=== PATIENT | female | born 1990 | race Caucasian/White ===

== ENCOUNTER 2017-01-07 12:34 | Outpatient (CLI) | payer MEDICAID ==
[~2017-01-07] VITALS: Ht 162.6 cm; Wt 69.1 kg
[~2017-01-07 12:34] MED LIST: FOLI0.4T2 PO; ONDA4TAB8 PO; PREN1TAB49 PO
[2017-01-07 13:13] VITALS: Ht 162.6 cm; Wt 69.1 kg
[2017-01-07 13:14] VITALS: BP 106/69; PULSE 82; RESP 19
--- NOTE | 2017-01-07 13:49 | RADRPT ---
PROCEDURE: US OB. CLINICAL INDICATION: Decreased movement TECHNIQUE: Multiple sonographic images of the pelvis were obtained. The images were reviewed on a PACS workstation. COMPARISON: No prior studies are available for comparison. FINDINGS: There is a single live intrauterine . cardiac activity is identified at a rate of 13 5 beats per minute. presentation is cephalic. Placenta is anterior grade II. Biophysical profile score is as follows: Breathing 2 Movements 2 Tone 2 Fluid volume 2 Amniotic fluid index = 10.3 cm Total biophysical profile score = 8/8 IMPRESSION: Biophysical profile score = 8/8 RPTAT: HH .Jaswinder Joe MD, MD Date Time Electronically viewed and signed by .Jaswinder Joe MD, on 01/07/2017 13:48 .W/
--- NOTE | 2017-01-07 16:49 | CONS ---
Date/Time of Note Date/Time of Note DATE: 01/07/17 TIME: 16:42 Consultation Date/Type/Reason Admit Date/Time January 07, 2017 OB triage consult This patient is 26 years old 3 para 3 living 3, with 2 previous spontaneous vaginal delivery. Her estimated date of confinement is January which makes her 38 weeks and 0 days now. She came in complaining of low movement in the past 2 days. On examination she is a well-developed well-nourished patient in no acute distress her general vital signs are normal with blood pressure 106/ 69, pulse rate of 82, respiration 19, and temperature 98.2. Constitutional: No chills, No diaphoresis, No disoriented, No febrile, No improved, No no complaints, No other, No poor po, No requiring IVF, No requiring O2 Eyes: No discharge, No no complaints, No other, No pain, No redness, No visual change ENT: No bleeding, No congestion, No discharge, No dysphagia, No no complaints, No other, No pain, No sore throat Respiratory: No cough, No no complaints, No other, No pain, No pleuritic pain, No shortness of breath, No sputum, No wheezing Cardiovascular: No chest pain, No edema, No lightheadedness, No no complaints, No orthopenea, No other, No palpitations, No paroxysmal nocturnal dyspnea Gastrointestinal: No blood, No constipation, No decreased appetite, No diarrhea , No flatus, No nausea, No no complaints, No other, No pain, No passing stool, No vomiting Genitourinary: No bleeding, No discharge, No dysuria, No flank pain, No hematuria, No no complaints, No other Musculoskeletal: other (Knee-jerk reflex were normal), No back pain, No bone/joint pain, No neck pain, No no complaints, No restricted range of motion, No swelling Skin: No bruising, No erythema, No laceration, No no complaints, No other, No pruritis, No rash, No skin lesions Neurologic: No confusion, No dizziness, No focal-weakness, No headache, No no complaints, No other, No seizure, No syncope Additional Comments . Her NST was reactive with fairly good variability and occasional acceleration no decelerations. Ultrasound examination result is single live intrauterine with heart activity 135 beats per minutes in vertex presentation her biophysical profile was reported 8.8. The amniotic fluid index was reported 10.3 cm. .Disposition: these normal findings were explained to the patient and she was discharged home to be followed in the clinic Social History Smoking Status: Never smoker Exam/Review of Systems Vital Signs Vitals Vital Signs Date Time Temp Pulse Resp B/P Pulse Ox O2 Delivery O2 Flow Rate FiO2 01/07/17 13:14 98.2 82 19 106/69 99 ORESTES REYES MD Jan 07, 2017 16:49
--- NOTE | 2017-01-07 20:21 | TRIAGE ---
OB Triage Datetime Report Generated by CPN: 01/07/2017 20:21 Datetime: 01/07/2017 16:39 Maternal Assessment Level of Consciousness: Fully Conscious Headache: Denies Blurred Vision: No Nausea/Vomiting: Denies RUQ Epigastric Pain: Denies Facial Edema: None Labor Evaluation Frequency: 2-9 Monitor Mode: External Duration (sec)2399: 50-80 Quality: Mild Pattern: Normal: <= 5 Contractions in 10 Minutes Resting Tone Lindsey: Relaxed Contraction Comments: PT REPORTS THAT SHE FEELS ABDOMINAL PRESSURE WITH CONTRACTIONS Heart Rate FHR Baseline Rate: 135 Monitor Mode: External US FHR Baseline Changes: No Baseline Change Variability: Moderate 6-25 bpm Accelerations: 15X15 Decelerations: None Pain Assessment Pain Scale: 0 Pain Presence: None/Denies Pain Type: N/A Datetime: 01/07/2017 16:00 Labor Evaluation Frequency: 2-8 Monitor Mode: External Duration (sec)2399: 60-80 Quality: Mild Pattern: Normal: <= 5 Contractions in 10 Minutes Resting Tone Lindsey: Relaxed Heart Rate FHR Baseline Rate: 135 FHR Baseline Changes: No Baseline Change Variability: Moderate 6-25 bpm Accelerations: 15X15 Decelerations: None Datetime: 01/07/2017 14:55 Stage of : OB Triage Maternal Assessment Level of Consciousness: Fully Conscious DTR's/Clonus: DTRs 1+ Headache: Denies Breath Sounds, Left: Clear and Equal Breath Sounds, Right: Clear and Equal Nausea/Vomiting: Denies RUQ Epigastric Pain: Denies Labor Evaluation Frequency: NONE Monitor Mode: External Resting Tone Lindsey: Relaxed Heart Rate FHR Baseline Rate: 130 Monitor Mode: External US Variability: Moderate 6-25 bpm Accelerations: 15X15 Decelerations: None Category: Category I Pain Assessment Pain Scale: 0 Pain Presence: None/Denies Pain Type: N/A Pain Goal: 3 Vaginal Exam Membrane Status: Intact Datetime: 01/07/2017 14:30 Stage of : OB Triage Maternal Assessment Level of Consciousness: Fully Conscious DTR's/Clonus: DTRs 1+ Headache: Denies Breath Sounds, Left: Clear and Equal Breath Sounds, Right: Clear and Equal Nausea/Vomiting: Denies RUQ Epigastric Pain: Denies Labor Evaluation Frequency: NONE Monitor Mode: External Resting Tone Lindsey: Relaxed Heart Rate FHR Baseline Rate: 130 Monitor Mode: External US Variability: Moderate 6-25 bpm Accelerations: 15X15 Decelerations: None Category: Category I Pain Assessment Pain Scale: 0 Pain Presence: None/Denies Pain Type: N/A Pain Goal: 3 Vaginal Exam Membrane Status: Intact Datetime: 01/07/2017 13:50 Comments: NST REACTIVE BPP 8/8 AF I 10.3 VTX Datetime: 01/07/2017 13:30 Maternal Assessment Level of Consciousness: Fully Conscious DTR's/Clonus: DTRs 1+ Headache: Denies Blurred Vision: No Respiratory Effort: Unlabored Breath Sounds, Left: Clear and Equal Breath Sounds, Right: Clear and Equal Nausea/Vomiting: Denies RUQ Epigastric Pain: Denies Facial Edema: None Labor Evaluation Frequency: NONE Monitor Mode: External Resting Tone Lindsey: Relaxed Heart Rate FHR Baseline Rate: 130 Monitor Mode: External US Variability: Moderate 6-25 bpm Accelerations: 10X10 Decelerations: None Category: Category I Pain Assessment Pain Scale: 0 Pain Presence: None/Denies Pain Type: N/A Pain Goal: 3 Vaginal Exam Membrane Status: Intact Datetime: 01/07/2017 12:30 Arrived By: Ambulatory Arrived From: Office Chief Complaint: PT CAME IN FROM CLINIC C/O DFM Movement: Present Contractions: Denies/Absent Rupture of Membranes: Denies Vaginal Discharge: Denies Recent Sexual Intercouse: Denies Abdominal Trauma: Not Applicable Additional Patient Complaints: NONE Provider Notified: JAYESH Initial Plan: ONURT AND BAYLEE
== END 2017-01-07 17:04 | disposition home or self-care (01) ==
LOC: OBT 12:34 → L-D 12:37 → OBT 17:04
PROVIDERS: ATTEND Obstetrics & Gynecology
DX: O36.8130 Decreased fetal movements, third trimester, not applicable or unspecified (principal); Z3A.37 37 weeks gestation of pregnancy
CPT/HCPCS: 76818; Z7500; G0463

== ENCOUNTER 2017-01-19 09:46 | Inpatient (IN) | payer MEDICAID ==
[~2017-01-19] VITALS: Ht 162.6 cm; Wt 69.7 kg
[~2017-01-19 09:46] MED LIST changes: -ONDA4TAB8 PO
[2017-01-19 10:01] VITALS: BP 111/75; PULSE 85; RESP 18; Ht 162.6 cm; Wt 69.7 kg
--- NOTE | 2017-01-19 10:25 | TRIAGE ---
OB Triage Datetime Report Generated by CPN: 01/19/2017 10:25 Datetime: 01/19/2017 10:06 Vaginal Exam Dilatation (cms): 3.5 Effacement (%): 80 Station: -2 [facility] Mem[facility] Status: Ruptured Membranes Rupture Method: Spontaneous Amniotic Fluid Color: Clear Amniotic Fluid Amount: Moderate Amniotic Fluid Odor: Normal Vaginal Bleeding: Normal Show Pool: Positive Nitrazine: Positive Cervix, Consistency: Soft Cervix, Position: Midposition Presentation 'A': Cephalic Datetime: 01/19/2017 09:58 Assessment Type: Triage Maternal Assessment Level of Consciousness: Fully Conscious DTR's/Clonus: DTRs 2+; No Clonus Headache: Denies Blurred Vision: No Respiratory Effort: Unlabored; Regular Rhythm; Equal Expansion Breath Sounds, Left: Clear and Equal Breath Sounds, Right: Clear and Equal Nausea/Vomiting: Denies RUQ Epigastric Pain: Denies Lower Extremities Edema: None Degree: None Upper Extremities Edema: None Degree: None Facial Edema: None Fall Risk Assessment History of Falling: (0) No Secondary Diagnosis: (0) No Ambulatory Aid: (0) Bedrest/Nurse Assist IV Therapy: (0) No Gait: (0) Normal/Bedrest/Immobile Mental Status: (0) Oriented to Own Ability Fall Score: 0 Fall Risk Score Definition: No Risk: No action required Datetime: 01/19/2017 09:56 Labor Evaluation Monitor Mode: External Heart Rate Monitor Mode: External US Datetime: 01/19/2017 09:50 Time of Arrival: 01/19/2017 09:34 EGA: 39.5 Arrived By: Ambulatory Arrived From: Office Chief Complaint: PT CAME IN FROM HOME C/O SROM Movement: Present Contractions: Denies/Absent Rupture of Membranes: Unsure Vaginal Bleeding: None Vaginal Discharge: Denies Recent Sexual Intercouse: Yes Abdominal Trauma: Not Applicable Patient Complaints: None Time Provider Notified: 01/19/2017 10:13 Provider Notified: JAYESH Initial Plan: EFM/SVE/ROM PLUS/
[2017-01-19] MEDS ORDERED: OXYTOCIN 30 UNITS/LR 500 ML IV PRN ×2 (10:30→20:00)
[2017-01-19] MEDS ORDERED: CARBOPROST 250 MCG INJ IM PRN ×2 (10:30→20:00)
[2017-01-19] MEDS ORDERED: LIDOCAINE 1% (MPF) 30 ML INJ INJ PRN (10:30)
[2017-01-19] MEDS ORDERED: IBUPROFEN 600 MG TAB PO PRN (10:30)
[2017-01-19] MEDS ORDERED: MISOPROSTOL 200 MCG TAB PR PRN ×2 (10:30→20:00)
[2017-01-19] MEDS ORDERED: BUTORPHANOL 2 MG INJ IV PRN (10:30)
[2017-01-19] MEDS ORDERED: METHYLERGONOVINE 0.2 MG INJ IM PRN ×2 (10:30→20:00)
[2017-01-19] MEDS: LACTATED RINGER'S 1,000 ML IV SCH ×3 (11:00→17:27)
[2017-01-19 11:43] LABS: BASOPHILS % 0.4 % (0.0-2.0); EOSINOPHILS # 0.1 10^3/ul (0.0-0.5); EOSINOPHILS % 0.6 % (0.0-7.0); HEMATOCRIT 35.2 % (37.0-47.0); HEMOGLOBIN 12.2 g/dl (12.0-16.0); LYMPHOCYTES # 1.4 10^3/ul (0.8-2.9); LYMPHOCYTES % 17.3 % (15.0-51.0); MEAN CORPUSCULAR HEMOGLOBIN 31.5 pg (29.0-33.0); MEAN CORPUSCULAR HGB CONC 34.7 g/dl (32.0-37.0); MEAN PLATELET VOLUME 9.9 fl (7.4-10.4); MONOCYTE # 0.8 10^3/ul (0.3-0.9); MONOCYTES % 10.1 % (0.0-11.0); NEUTROPHIL # 5.9 10^3/ul (1.6-7.5); NEUTROPHILS % 71.1 % (39.0-77.0); PLATELET COUNT 242 10^3/UL (140-415); RED BLOOD COUNT 3.87 10^6/ul (4.20-5.40); RED CELL DISTRIBUTION WIDTH 13.2 % (11.5-14.5); WHITE BLOOD COUNT 8.3 10^3/ul (4.8-10.8)
[2017-01-19 12:06] LABS: INR 0.98; PARTIAL THROMBOPLASTIN TIME 29.6 Sec (25.0-35.0); PROTIME 13.1 Sec (11.9-14.9)
[2017-01-19] MEDS ORDERED: AMPICILLIN 2 GM/NS (PMX) 100 ML IVPB ONE (14:30)
[2017-01-19] MEDS: OXYTOCIN 30 UNITS/LR 500 ML IV SCH ×2 (14:37→18:07)
[2017-01-19] MEDS ORDERED: FENTAnyl 2MCG/ML-ROPIV 0.2% 100 ML ONE (17:11)
[2017-01-19] MEDS ORDERED: AMPICILLIN 1 GM/NS (PMX) 50 ML IVPB SCH (17:30)
--- NOTE | 2017-01-19 17:40 | QN ---
Documentation Comment Patient Name: Radhames Jalloh Unit Number: [id number] Date of : 01/26/1984 Patient Status: Registered Clinic Attending Doctor: Elvi Chavez MD Date/Time of Note Date/Time of Note DATE: 01/19/17 TIME: 17:14 OB - History Hx of Present Free Text/Dictation 32-year-old female admitted in latent phase of labor complaining of a spontaneous rupture of membrane at 39+ weeks Chief Complaint: Spontaneous rupture of membranes Last Menstrual Period: Apr 16, 2016 Estimated Due Date: Jan 21, 2017 : 3 Para: 2 Care: Good Care Ultrasounds: Normal mid trimester US Obstetrical Complications: None Medical Complications: None Past Family/Social History * Past Medical, Surgical, Family and Obstetric Histories reviewed from chart. Blood Type: O+ Rubella: immune RPR/VDRL: Negative GBS Status: Negative HBsAG: Negative OB Admission Exam Vital Signs Vital Signs Vital Signs Date Time Temp Pulse Resp B/P Pulse Ox O2 Delivery O2 Flow Rate FiO2 01/19/17 14:30 98.9 88 18 107/56 96 Room Air Physical Exam HEENT: WNL Heart: Rhythm Normal Lungs: Clear, Equal Abdomen: WNL Extremities: Normal Reflexes: Normal Cervical Dilatation: 3cm Effacement: 75% Station: -3 Membranes: Ruptured Amniotic Fluid: Clear Heart Rate: 130's Accelerations: Accelerations Present Decelerations: No Decelerations Varibility: Marked Contractions on Admission: 6-10 Minutes Apart Date/Time Contractions Began: January 19, 2017 few hours prior to admission Frequency of Contractions: Every 10-15 minutes Duration: Over 60 seconds Intensity: Mild OB Assessment/Plan Other Assessment: Term gestation Spontaneous rupture of membranes Other plan: We will try to augment labor with Pitocin ELVI CHAVEZ MD Jan 19, 2017 17:17 Addendum: ELVI CHAVEZ MD on 01/19/17 @ 17:37 ELVI CHAVEZ MD Jan 19, 2017 17:40
--- NOTE | 2017-01-19 18:08 | LDN ---
Date/Time of Note Date/Time of Note DATE: 01/19/17 TIME: 18:06 Delivery Summary Normal spontaneous vaginal delivery of a viable over intact perineum Weeks of Gestation 39+ Placenta Delivered: Spontaneously, Intact & Complete Meconium: none Episiotomy: No Perineal laceration: 0 Anesthesia type: Epidural Estimated blood loss: 300 Sponge & Needle done & correct: Yes All needle counts correct: Yes Any foreign bodies felt in the: No Problems: Infant Delivery Information Sex Infant Sex: female Apgars 1 Minute: 9 5 Minute: 9 Suctioning Nose & mouth suctioned at gab: Yes Delee suction performed: Yes Umbilical Cord Cord presentations: no nuchal cord Cord Blood was obtained: Yes Mother & Baby Disposition Disposition Mom & Baby to Maternity; Good: Yes (Mother and baby recovered in good condition ) Mom transferred to: Other (Maternity) Baby to NICU: No ELVI MCFARLANE MD Jan 19, 2017 18:08
[2017-01-19] MEDS ORDERED: LACTATED RINGER'S 1,000 ML IV* SCH (19:38)
[2017-01-19 20:00] VITALS: BP 123/75; PULSE 60; RESP 21
[2017-01-19] MEDS ORDERED: LANOLIN 7 GM TUBE TOP PRN (20:00)
[2017-01-19] MEDS ORDERED: ZOLPIDEM 5 MG TAB PO PRN ×2 (20:00→21:00)
[2017-01-19] MEDS ORDERED: BENZOCAINE 20% 56 ML SPRAY TOP PRN (20:00)
[2017-01-19] MEDS ORDERED: WITCH HAZEL/GLYCERIN PAD PR PRN (20:00)
[2017-01-19] MEDS ORDERED: HYDROCODONE/APAP (5/325) TAB PO PRN ×2 (20:00)
[2017-01-19] MEDS ORDERED: DIBUCAINE 1% 30 GM OINT PR PRN (20:00)
[2017-01-19 21:00] VITALS: BP 115/78; PULSE 53; RESP 19
[2017-01-19] MEDS ORDERED: DIPHENHYDRAMINE 50 MG INJ IV PRN (21:00)
[2017-01-19] MEDS ORDERED: HYDROmorphONE 0.5 MG/0.5 ML SYG IV PRN ×2 (21:00)
[2017-01-19] MEDS ORDERED: FENTAnyl 2MCG/ML-ROPIV 0.2% 100 ML BAG EPI SCH (21:00)
[2017-01-19] MEDS ORDERED: ONDANSETRON 4 MG INJ IV PRN (21:00)
[2017-01-19] MEDS ORDERED: NALOXONE (0.4 MG/ML) INJ IV PRN (21:00)
[2017-01-19] MEDS ORDERED: KETOROLAC 30 MG INJ IV PRN (21:00)
[2017-01-19] MEDS: CEPHALEXIN 500 MG CAP PO SCH (23:34)
[2017-01-19] MEDS: SENNA/DOCUSATE NA (8.6MG/50MG) TAB PO SCH (23:34)
[2017-01-19] MEDS: MAGNESIUM HYDROXIDE 30ML CUP PO SCH (23:34)
[2017-01-19] MEDS: IBUPROFEN 600 MG TAB PO SCH (23:35)
[2017-01-20] VITALS (7 sets, daily range): BP systolic 112–122; BP diastolic 70–81; PULSE 60–69; RESP 16–20
[2017-01-20] MEDS: CEPHALEXIN 500 MG CAP PO SCH ×4 (05:38→23:50)
[2017-01-20] MEDS: IBUPROFEN 600 MG TAB PO SCH ×4 (05:39→23:48)
[2017-01-20] MEDS: MAGNESIUM HYDROXIDE 30ML CUP PO SCH ×2 (09:22→20:35)
[2017-01-20] MEDS: SENNA/DOCUSATE NA (8.6MG/50MG) TAB PO SCH ×2 (09:22→20:35)
[2017-01-20 11:14] LABS: BASOPHILS % 0.4 % (0.0-2.0); EOSINOPHILS # 0.1 10^3/ul (0.0-0.5); EOSINOPHILS % 0.6 % (0.0-7.0); HEMATOCRIT 32.6 % (37.0-47.0); HEMOGLOBIN 11.1 g/dl (12.0-16.0); LYMPHOCYTES # 1.5 10^3/ul (0.8-2.9); MEAN CORPUSCULAR HEMOGLOBIN 31.5 pg (29.0-33.0); MEAN CORPUSCULAR VOLUME 92.6 fl (82.0-101.0); MEAN PLATELET VOLUME 10.2 fl (7.4-10.4); MONOCYTE # 0.8 10^3/ul (0.3-0.9); MONOCYTES % 7.8 % (0.0-11.0); NEUTROPHIL # 7.1 10^3/ul (1.6-7.5); NEUTROPHILS % 74.7 % (39.0-77.0); PLATELET COUNT 201 10^3/UL (140-415); RED BLOOD COUNT 3.52 10^6/ul (4.20-5.40); RED CELL DISTRIBUTION WIDTH 13.1 % (11.5-14.5); WHITE BLOOD COUNT 9.6 10^3/ul (4.8-10.8)
--- NOTE | 2017-01-20 19:37 | DS ---
Date/Time of Note Date/Time of Note Home today or next day DATE: 01/20/17 TIME: 19:36 Obstetrical Discharge Record Final Diagnosis Final Diagnosis: Term delivered Other Final Diagnosis Status post vaginal delivery Vaginal Delivery Obstetrical Delivery: Spontaneous Complications Augmentation: Yes Condition on Discharge Physical Assessment Last Vitals: See nurse's notes Voiding: Yes Bowel Movement: Yes Breast: Soft, non-tender, Filling Fundus: Firm Abdomen and Incision: Abdomen is soft bowel sounds present Fundus is firm at umbilicus Episiotomy: Not applicable Calf Tenderness: No Patient Condition: Good ELVI MCFARLANE MD Jan 20, 2017 19:37
--- NOTE | 2017-01-20 19:39 | PD.PPDC ---
[employer] Discharge Instruction Provider Information Physician Information 26-year-old female had vaginal delivery Diagnosis Final Diagnosis: Status post vaginal delivery Condition Patient Condition: Good Diet Diet: Resume Regular Diet Activity/Restrictions Activity: Normal Activity May Shower Restrictions: Nothing in the Vagina Return to Work or School: Mar 08, 2017 Follow-up Follow-up with Physician: 4, Week/Weeks (In clinic) Return to clinic for OB Instructions: Breast Tenderness Depression Comment: Pelvic rest for 6 weeks ELVI MCFARLANE MD Jan 20, 2017 19:39
[2017-01-20] MEDS ORDERED: IBUP-1542 PO (19:40)
[2017-01-21 04:00] VITALS: BP 98/60; PULSE 60; RESP 18
[2017-01-21] MEDS: CEPHALEXIN 500 MG CAP PO SCH ×2 (05:45→11:49)
[2017-01-21] MEDS: IBUPROFEN 600 MG TAB PO SCH ×2 (05:46→11:48)
[2017-01-21 08:00] VITALS: BP 118/83; PULSE 58; RESP 17
[2017-01-21] MEDS: SENNA/DOCUSATE NA (8.6MG/50MG) TAB PO SCH (09:00)
[2017-01-21] MEDS ORDERED: DIPHTH/TET/ACEL PERTUSS (ADULT) 0.5 ML VIAL IM* ONE (09:00)
[2017-01-21] MEDS ORDERED: MEASLES,MUMPS,RUBELLA VACCINE INJ SC* ONE (09:00)
[2017-01-21] MEDS ORDERED: VARICELLA VACCINE LIVE/PF 1,350 UNIT/0.5 ML ML SC* ONE (09:00)
[2017-01-21] MEDS: MAGNESIUM HYDROXIDE 30ML CUP PO SCH (09:00)
== END 2017-01-21 15:39 | disposition home or self-care (01) | DRG 775 ==
LOC: OBT 09:46 → L-D 09:46 → OBT 10:26 → PP1 19:57
PROVIDERS: ADMIT Obstetrics & Gynecology; ATTEND Obstetrics & Gynecology
PROC: 10E0XZZ Delivery of Products of Conception, External Approach (ICD-10-PCS; principal; 2017-01-19)
DX: O80 Encounter for full-term uncomplicated delivery (principal); Z37.0 Single live birth; Z3A.39 39 weeks gestation of pregnancy
CPT/HCPCS: 62319; 84112; 85025; 85610; 85730; 86592; 86850; 86900; 86901; 87340; 90715; 90716; G0463; J0290; J2590; J3010; J7120

== ENCOUNTER 2017-12-24 21:02 | Emergency (ER) | END 2017-12-24 23:59 | disposition home or self-care (01) ==